=== PATIENT | male | born 1995 | race Caucasian/White ===

== ENCOUNTER 2018-03-14 15:26 | Emergency (ER) | payer SELFPAY ==
[2018-03-14 17:07] VITALS: TEMP 96.3
--- NOTE | 2018-03-14 17:55 | CT ---
EXAM: Abdoment/Pelvis w/o Contrast CLINICAL INDICATION: 22-year-old male with RIGHT lower thoracic wall and RIGHT RIGHT upper quadrant pain following trauma. COMPARISON: None. EXAMINATION: CT of the abdomen and pelvis was performed without intravenous or oral contrast. Multiplanar reformatted images were provided. This exam was performed according to our departmental dose optimization program which includes use of automated exposure control, adjustment of the mA and/or kV according to patient size and/or use of iterative reconstruction technique. FINDINGS: Evaluation of solid organ pathology is limited secondary to lack of intravenous contrast. Within these limitations, the following observations are made. Chest: Evaluation through the lung bases reveals no focal opacity, pleural effusion or pneumothorax. Heart size is within normal limits. No pericardial effusion. Abdomen and pelvis: The liver, gallbladder, pancreas, spleen, bilateral kidneys and bilateral adrenal glands are within normal limits. The vessels are normal in caliber. No abdominopelvic lymph nodes are noted to be pathologically enlarged by CT measurement criteria. The bowel is within normal limits without abnormal bowel wall thickness or bowel dilation. No free air. No free abdominopelvic fluid collections. The appendix is not visualized. The osseous structures are within normal limits. IMPRESSION: 1. No specific acute intra-abdominal findings are noted to suggest etiology of the patient's abdominal pain. Electronically signed by: Pallavi Preciado MD 03/14/2018 5:53 PM CDT
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
[2018-03-14 19:18] VITALS: BP 122/70; O2SAT 99
== END 2018-03-14 18:42 | disposition home or self-care (01) ==
LOC: ER 15:26
DX: R31.9 Hematuria, unspecified (principal); N39.44 Nocturnal enuresis; R10.11 Right upper quadrant pain; F32.9 Major depressive disorder, single episode, unspecified; Z87.891 Personal history of nicotine dependence

== ENCOUNTER 2018-04-15 03:06 | Emergency (ER) | payer SELFPAY ==
[2018-04-15 03:22] VITALS: TEMP 98.8
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
[2018-04-15] MEDS ORDERED: ONDANSETRON ODT 8 MG TAB SL ONE (03:50)
--- NOTE | 2018-04-15 04:20 | RAD ---
Examination: XR ABDOMEN 1 VIEW (KUB) dated 04/15/2018 3:36 AM CDT History: pain Comparison: None Technique: Frontal view of the abdomen and pelvis FINDINGS: Nonobstructive bowel gas pattern. No suspicious calcifications. No acute osseous abnormalities. IMPRESSION: No acute findings. Electronically signed by: Kt George MD 04/15/2018 4:19 AM CDT
--- NOTE | 2018-04-15 04:21 | RAD ---
Examination: XR CHEST 1 VIEW dated 04/15/2018 3:36 AM CDT History: pain Comparison: None Technique: 1 view chest Findings: The lungs are clear bilaterally. No pneumothorax or pleural effusion. The cardiomediastinal silhouette is within normal limits. Impression: No acute findings Electronically signed by: Kt George MD 04/15/2018 4:20 AM CDT
[2018-04-15] MEDS ORDERED: SUCRALFATE 1 GM/10 ML 1 GM UD ONE (04:35)
[2018-04-15] MEDS ORDERED: SUCRALFATE 1 GM/10 ML 1 GM UD PO ONE (04:36)
[2018-04-15 04:42] VITALS: BP 146/80; O2SAT 98
== END 2018-04-15 04:58 | disposition home or self-care (01) ==
LOC: ER 03:06
DX: T54.91XA Toxic effect of unspecified corrosive substance, accidental (unintentional), initial encounter (principal); R11.2 Nausea with vomiting, unspecified; R10.9 Unspecified abdominal pain; F32.9 Major depressive disorder, single episode, unspecified; Z90.49 Acquired absence of other specified parts of digestive tract; Z87.891 Personal history of nicotine dependence